=== PATIENT | male | born 1990 | race Caucasian/White ===

== ENCOUNTER → 2023-07-13 | Outpatient (CLI) | payer BC ==
--- NOTE | 2023-07-18 06:44 | MR ---
EXAMINATION TYPE: MR knee LT wo con DATE OF EXAM: 07/13/2023 COMPARISON: NONE HISTORY: Medial Pain and swelling Left knee, Knee locks. Symptoms for years. History of prior surgery per patient. Sprain of the anterior cruciate ligament per order. TECHNIQUE: Multiplanar, multisequence images of the knee is performed without IV contrast. FINDINGS: MEDIAL MENISCUS: Truncated appearance to the medial meniscus particularly posterior horn with abnorma l signal extending to articular surface sagittal image 27. LATERAL MENISCUS: Truncated appearance to lateral meniscus suggesting prior trauma and/or surgical ch bettye. Increased signal in the remnant posterior horn. CRUCIATE LIGAMENTS: The posterior cruciate ligament is intact and unremarkable. Increased signal and thinning of fibers in the anterior cruciate ligament. Artifact from prior reconstruction surgery is n oted. COLLATERAL LIGAMENTS: The medial collateral ligament and lateral collateral ligament complex are inta ct and unremarkable. EXTENSOR MECHANISM: Visualized quadriceps and patellar tendons are intact. EFFUSION: Small suprapatellar joint effusion extends laterally. POPLITEAL CYST: Small to tiny popliteal/muhammad cyst. TRICOMPARTMENT SPACES: Moderate tricompartment joint space loss with mild to moderate tricompartment spurring. CARTILAGE: Cartilaginous loss lateral and medial tibiofemoral compartments. No significant chondromal acia patella. BONE MARROW SIGNAL: Heterogeneous diminished T1 and increased T2 signal involving the distal medial f emoral condyle greatest on the slight posterior aspect and the lateral tibial plateau. OTHER: No additional significant abnormality is appreciated. IMPRESSION: 1. Evidence of prior ACL surgical repair. Significant partial tearing of the repaired ACL noted. 2. 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 3. Suspect prior surgery to the medial and lateral menisci. Recurrent tears are suspected involving t he remnant posterior horns. 4. Small suprapatellar joint effusion extending laterally. 5. Small to tiny size popliteal cyst.
== END | disposition home or self-care (01) ==
LOC: RADMRIMAIN 18:24
PROVIDERS: ATTEND Family Medicine
DX: M17.12 Unilateral primary osteoarthritis, left knee (principal); S83.512D Sprain of anterior cruciate ligament of left knee, subsequent encounter; M25.462 Effusion, left knee; M71.22 Synovial cyst of popliteal space [Baker], left knee; Z98.890 Other specified postprocedural states; X58.XXXD Exposure to other specified factors, subsequent encounter